=== PATIENT | female | born 1965 | race African-American/Black ===

== ENCOUNTER 2017-05-14 08:59 | Emergency (ER) | payer MEDICAID ==
[~2017-05-14] VITALS: Ht 167.6 cm; Wt 118.2 kg
[~2017-05-14 08:59] MED LIST: NO CURRENT MEDS
[2017-05-14] MEDS ORDERED: AMIT25TA9 PO (09:20)
[2017-05-14] MEDS ORDERED: CETI-260 PO (09:20)
[2017-05-14] MEDS ORDERED: GABA-531 PO (09:20)
[2017-05-14] MEDS ORDERED: IBUPROFEN 800 MG TABLET PO ONE (11:00)
[2017-05-14 12:19] VITALS: BP 115/66
== END 2017-05-14 12:14 | disposition home or self-care (01) ==
LOC: EMS 09:00
DX: S93.401A Sprain of unspecified ligament of right ankle, initial encounter (principal); S93.402A Sprain of unspecified ligament of left ankle, initial encounter; Z79.899 Other long term (current) drug therapy; X58.XXXA Exposure to other specified factors, initial encounter; Y93.89 Activity, other specified; Y92.89 Other specified places as the place of occurrence of the external cause; Y99.8 Other external cause status
CPT/HCPCS: 99284

== ENCOUNTER 2017-12-15 05:49 | Emergency (ER) | payer MEDICAID ==
[~2017-12-15] VITALS: Ht 167.6 cm; Wt 114.0 kg
[~2017-12-15 05:49] MED LIST changes: +AMIT25TA9 PO; +CETI-290 PO; +GABA-531 PO; -NO CURRENT MEDS
[2017-12-15 06:18] VITALS: BP 134/72
== END 2017-12-15 06:26 | disposition home or self-care (01) ==
LOC: EMS 05:51
DX: J40 Bronchitis, not specified as acute or chronic (principal)
CPT/HCPCS: 99283

== ENCOUNTER 2020-02-29 23:51 | Emergency (ER) | payer MEDICAID ==
[~2020-02-29] VITALS: Ht 167.6 cm; Wt 119.5 kg
[~2020-02-29 23:51] MED LIST changes: -AMIT25TA9 PO; -CETI-290 PO; +GABA-1181 PO; -GABA-531 PO
[2020-03-01] MEDS ORDERED: AMIT75 PO (00:02)
[2020-03-01 01:18] LABS: BASOPHILS % (AUTO) 0.8 % (0.0-2.0); EOSINOPHILS % (AUTO) 1.8 % (1.0-6.0); HEMATOCRIT 43.6 % (36-46); HEMOGLOBIN 14.5 g/dL (12.0-16.0); LYMPHOCYTES # (AUTO) 2.6 K/uL (1.0-4.8); LYMPHOCYTES % (AUTO) 41.7 % (22.0-44.0); MEAN CORPUSCULAR HEMOGLOBIN 33.8 pg (26.0-34.0); MEAN CORPUSCULAR HGB CONC 33.3 G/dL (31.0-37.0); MEAN CORPUSCULAR VOLUME 102 fL (80-100); MONOCYTES # (AUTO) 0.5 K/uL (0.1-1.0); MONOCYTES % (AUTO) 7.7 % (2.0-9.0); PLATELET COUNT (AUTO) 233 K/uL (150-450); RED BLOOD CELL COUNT(AUTO) 4.29 MIL/uL (4.00-5.20); RED CELL DISTRIBUTION WIDTH 13.6 % (11.5-14.5)
[2020-03-01] MEDS ORDERED: KETOROLAC TROMETHAMINE 60 MG/2 ML VIAL IM ONE (01:30)
[2020-03-01] MEDS ORDERED: FUROSEMIDE 20 MG TABLET PO ONE (01:30)
[2020-03-01 01:34] LABS: ANION GAP 9 mmol/L (8-16); CARBON DIOXIDE 31 mmol/L (22-29); CHLORIDE 104 mmol/L (98-107); GLOMERULAR FILTR. RATE CALC > 60 mL/min (>60); GLUCOSE,RANDOM 109 mg/dL (70-110); POTASSIUM 3.8 mmol/L (3.5-5.1); SODIUM SERUM 144 mmol/L (136-145); UREA NITROGEN, BLOOD 11 mg/dL (7-18)
[2020-03-01 01:40] LABS: ALANINE AMINOTRANSFERASE 23 U/L (12-78); ALBUMIN 3.6 g/dL (3.4-5.0); ALKALINE PHOSPHATASE 85 U/L (46-116); ASPARTATE AMINOTRANSFERASE 19 U/L (15-37); BILIRUBIN,TOTAL 0.6 mg/dL (0.1-1.0); TOTAL PROTEIN, SERUM 6.6 g/dL (6.4-8.2)
[2020-03-01 04:58] VITALS: BP 140/80
== END 2020-03-01 05:00 | disposition home or self-care (01) ==
LOC: EMS 23:55
DX: G62.9 Polyneuropathy, unspecified (principal); R60.0 Localized edema
CPT/HCPCS: 36415; 80053; 83880; 85025; 85379; 93970; 96372; 99285; J1885

== ENCOUNTER 2020-09-04 19:43 | Emergency (ER) | payer MEDICAID ==
[~2020-09-04] VITALS: Ht 170.2 cm; Wt 113.6 kg
[~2020-09-04 19:43] MED LIST changes: +AMIT75 PO
[2020-09-04 23:45] LABS: BASOPHILS % (AUTO) 0.6 % (0.0-2.0); EOSINOPHILS % (AUTO) 2.2 % (1.0-6.0); HEMATOCRIT 37.1 % (36-46); HEMOGLOBIN 12.6 g/dL (12.0-16.0); LYMPHOCYTES # (AUTO) 2.1 K/uL (1.0-4.8); LYMPHOCYTES % (AUTO) 35.5 % (22.0-44.0); MEAN CORPUSCULAR HEMOGLOBIN 34.3 pg (26.0-34.0); MEAN CORPUSCULAR VOLUME 101 fL (80-100); MONOCYTES # (AUTO) 0.6 K/uL (0.1-1.0); MONOCYTES % (AUTO) 9.5 % (2.0-9.0); NEUTROPHILS # (AUTO) 3.2 K/uL (1.8-7.7); NEUTROPHILS % (AUTO) 52.2 % (40.0-70.0); PLATELET COUNT (AUTO) 191 K/uL (150-450); RED BLOOD CELL COUNT(AUTO) 3.68 MIL/uL (4.00-5.20); RED CELL DISTRIBUTION WIDTH 13.3 % (11.5-14.5)
[2020-09-04 23:52] LABS: INR 0.9 (0.9-1.1); PROTHROMBIN TIME 9.9 SEC (9.4-11.6)
[2020-09-04 23:54] LABS: ANION GAP 9 mmol/L (8-16); CALCIUM, TOTAL 9.1 mg/dL (8.8-10.5); CARBON DIOXIDE 29 mmol/L (22-29); CHLORIDE 106 mmol/L (98-107); CREATININE 1.09 mg/dL (0.60-1.30); GLOMERULAR FILTR. RATE CALC > 60 mL/min (>60); GLUCOSE,RANDOM 117 mg/dL (70-110); POTASSIUM 3.9 mmol/L (3.5-5.1); SODIUM SERUM 144 mmol/L (136-145); UREA NITROGEN, BLOOD 7 mg/dL (7-18)
[2020-09-05 00:01] LABS: ALANINE AMINOTRANSFERASE 18 U/L (12-78); ALBUMIN 3.2 g/dL (3.4-5.0); ALKALINE PHOSPHATASE 83 U/L (46-116); ASPARTATE AMINOTRANSFERASE 18 U/L (15-37); BILIRUBIN,TOTAL 0.4 mg/dL (0.1-1.0); TOTAL PROTEIN, SERUM 6.3 g/dL (6.4-8.2)
[2020-09-05 00:20] VITALS: BP 136/81
== END 2020-09-05 01:14 | disposition home or self-care (01) ==
LOC: EMS 19:50
DX: S40.022A Contusion of left upper arm, initial encounter (principal); X58.XXXA Exposure to other specified factors, initial encounter; Y93.89 Activity, other specified; Y92.89 Other specified places as the place of occurrence of the external cause; Y99.8 Other external cause status
CPT/HCPCS: 93971

== ENCOUNTER 2021-01-02 19:42 | Emergency (ER) | payer MEDICAID ==
[~2021-01-02] VITALS: Ht 170.2 cm; Wt 113.6 kg
[2021-01-02 22:00] VITALS: BP 126/77
[2021-01-02] MEDS ORDERED: LIDOCAINE 5% TRANSDERMAL PATCH TD ONE (22:30)
[2021-01-02] MEDS ORDERED: KETOROLAC TROMETHAMINE 30 MG/ML VIAL IM ONE (22:30)
== END 2021-01-02 23:05 | disposition home or self-care (01) ==
LOC: EMS 19:42
DX: G62.9 Polyneuropathy, unspecified (principal)
CPT/HCPCS: 96372; 99283; J1885

== ENCOUNTER 2021-04-19 23:41 | Emergency (ER) | payer MEDICAID ==
[~2021-04-19] VITALS: Ht 170.2 cm; Wt 72.7 kg
[2021-04-20] MEDS ORDERED: KETOROLAC TROMETHAMINE 30 MG/ML VIAL IM ONE (02:45)
[2021-04-20] MEDS ORDERED: LIDOCAINE 5% TRANSDERMAL PATCH TD ONE (02:45)
[2021-04-20] MEDS ORDERED: ACETAMINOPHEN 500 MG TABLET PO ONE (02:45)
[2021-04-20 03:11] LABS: BASOPHILS % (AUTO) 0.5 % (0.0-2.0); EOSINOPHILS % (AUTO) 0.7 % (1.0-6.0); HEMATOCRIT 42.6 % (36-46); LYMPHOCYTES # (AUTO) 2.2 K/uL (1.0-4.8); LYMPHOCYTES % (AUTO) 28.1 % (22.0-44.0); MEAN CORPUSCULAR HEMOGLOBIN 33.9 pg (26.0-34.0); MEAN CORPUSCULAR HGB CONC 32.9 G/dL (31.0-37.0); MEAN CORPUSCULAR VOLUME 103 fL (80-100); MONOCYTES # (AUTO) 0.7 K/uL (0.1-1.0); MONOCYTES % (AUTO) 9.1 % (2.0-9.0); NEUTROPHILS # (AUTO) 4.8 K/uL (1.8-7.7); NEUTROPHILS % (AUTO) 61.6 % (40.0-70.0); PLATELET COUNT (AUTO) 228 K/uL (150-450); RED BLOOD CELL COUNT(AUTO) 4.13 MIL/uL (4.00-5.20); RED CELL DISTRIBUTION WIDTH 13.4 % (11.5-14.5)
[2021-04-20 03:16] LABS: ANION GAP 11 mmol/L (8-16); CALCIUM, TOTAL 9.2 mg/dL (8.8-10.5); CARBON DIOXIDE 29 mmol/L (22-29); CHLORIDE 104 mmol/L (98-107); CREATININE 1.03 mg/dL (0.60-1.30); GLOMERULAR FILTR. RATE CALC > 60 mL/min (>60); GLUCOSE,RANDOM 96 mg/dL (70-110); POTASSIUM 4.2 mmol/L (3.5-5.1); SODIUM SERUM 144 mmol/L (136-145); UREA NITROGEN, BLOOD 5 mg/dL (7-18)
[2021-04-20 03:22] LABS: ALANINE AMINOTRANSFERASE 21 U/L (12-78); ALBUMIN 3.4 g/dL (3.4-5.0); ALKALINE PHOSPHATASE 132 U/L (46-116); ASPARTATE AMINOTRANSFERASE 21 U/L (15-37); TOTAL PROTEIN, SERUM 7.2 g/dL (6.4-8.2)
[2021-04-20 06:19] VITALS: BP 125/71
== END 2021-04-20 07:01 | disposition home or self-care (01) ==
LOC: EMS 23:42
DX: M54.16 Radiculopathy, lumbar region (principal)
CPT/HCPCS: 36415; 80053; 85025; 96372; 99283; J1885

== ENCOUNTER 2021-06-16 03:34 | Emergency (ER) | payer MEDICAID ==
[~2021-06-16] VITALS: Ht 167.6 cm; Wt 118.2 kg
[~2021-06-16 03:34] MED LIST changes: -AMIT75 PO; +AMIT75TA55 PO
[2021-06-16] MEDS ORDERED: KETOROLAC TROMETHAMINE 30 MG/ML VIAL IM ONE ×2 (04:15→04:30)
[2021-06-16] MEDS ORDERED: LIDOCAINE 5% TRANSDERMAL PATCH TD ONE (04:30)
[2021-06-16 05:31] VITALS: BP 149/98
== END 2021-06-16 05:50 | disposition home or self-care (01) ==
LOC: EMS 03:35
DX: M54.16 Radiculopathy, lumbar region (principal); Z79.899 Other long term (current) drug therapy
CPT/HCPCS: 96372; 99283; J1885

== ENCOUNTER 2021-11-02 22:43 | Emergency (ER) | payer MEDICAID ==
[~2021-11-02] VITALS: Ht 170.2 cm; Wt 113.6 kg
[2021-11-02] MEDS ORDERED: KETOROLAC TROMETHAMINE 60 MG/2 ML VIAL IM ONE (23:45)
[2021-11-02] MEDS ORDERED: OxyCODONE HCL/ACETAMINOPHEN 5-325 MG TABLET PO ONE (23:45)
[2021-11-02 23:49] VITALS: BP 120/68
== END 2021-11-03 00:40 | disposition home or self-care (01) ==
LOC: EMS 22:44
DX: G62.9 Polyneuropathy, unspecified (principal)
CPT/HCPCS: 96372; 99283; J1885

== ENCOUNTER 2022-03-05 16:55 | Emergency (ER) | payer MEDICAID ==
[~2022-03-05] VITALS: Ht 170.2 cm; Wt 109.1 kg
[2022-03-05] MEDS ORDERED: ACETAMINOPHEN 500 MG TABLET PO ONE (18:00)
[2022-03-05 19:28] VITALS: BP 135/70
== END 2022-03-05 19:34 | disposition home or self-care (01) ==
LOC: EMS 17:12
DX: S09.90XA Unspecified injury of head, initial encounter (principal); M54.2 Cervicalgia; M54.50 Low back pain, unspecified; R51.9 Headache, unspecified; Z86.69 Personal history of other diseases of the nervous system and sense organs; Z98.890 Other specified postprocedural states; V89.2XXA Person injured in unspecified motor-vehicle accident, traffic, initial encounter; Y93.89 Activity, other specified; Y92.89 Other specified places as the place of occurrence of the external cause; Y99.8 Other external cause status
CPT/HCPCS: 70450; 72100; 72125; 99284

== ENCOUNTER 2023-07-19 19:11 | Emergency (ER) | payer MEDICAID ==
[~2023-07-19] VITALS: Ht 167.6 cm; Wt 114.5 kg
[2023-07-19 19:12] VITALS: TEMP 98
[2023-07-19] MEDS ORDERED: METHOCARBAMOL 100 MG/ML 10 ML VIAL IVP ONE (20:30)
[2023-07-19] MEDS ORDERED: KETOROLAC TROMETHAMINE 30 MG/ML VIAL IVP ONE (20:30)
[2023-07-19 21:04] LABS: BASOPHILS % (AUTO) 1.6 % (0.0-2.0); EOSINOPHILS % (AUTO) 2.2 % (1.0-6.0); HEMATOCRIT 41.3 % (36-46); HEMOGLOBIN 13.8 g/dL (12.0-16.0); LYMPHOCYTES # (AUTO) 1.6 K/uL (1.0-4.8); LYMPHOCYTES % (AUTO) 29.8 % (22.0-44.0); MEAN CORPUSCULAR HEMOGLOBIN 34.6 pg (26.0-34.0); MEAN CORPUSCULAR HGB CONC 33.3 G/dL (31.0-37.0); MEAN CORPUSCULAR VOLUME 104 fL (80-100); MONOCYTES # (AUTO) 0.5 K/uL (0.1-1.0); MONOCYTES % (AUTO) 10.4 % (2.0-9.0); NEUTROPHILS # (AUTO) 2.9 K/uL (1.8-7.7); PLATELET COUNT (AUTO) 189 K/uL (150-450); RED BLOOD CELL COUNT(AUTO) 3.98 MIL/uL (4.00-5.20); RED CELL DISTRIBUTION WIDTH 14.4 % (11.5-14.5); WHITE BLOOD COUNT (AUTO) 5.2 K/uL (4.5-11.0)
[2023-07-19] MEDS ORDERED: FentaNYL CITRATE PF 100 MCG/2 ML VIAL IVP ONE (21:15)
[2023-07-19 21:20] LABS: ANION GAP 12 mmol/L (8-16); CALCIUM, TOTAL 9.1 mg/dL (8.8-10.5); CARBON DIOXIDE 27 mmol/L (22-29); CHLORIDE 106 mmol/L (98-107); CREATININE 1.03 mg/dL (0.60-1.30); GLOMERULAR FILTR. RATE CALC > 60 mL/min (>60); GLUCOSE,RANDOM 111 mg/dL (70-110); POTASSIUM 4.1 mmol/L (3.5-5.1); SODIUM SERUM 145 mmol/L (136-145); UREA NITROGEN, BLOOD 8 mg/dL (7-18)
[2023-07-19 21:26] LABS: ALANINE AMINOTRANSFERASE 28 U/L (12-78); ALBUMIN 3.6 g/dL (3.4-5.0); ALKALINE PHOSPHATASE 97 U/L (46-116); ASPARTATE AMINOTRANSFERASE 36 U/L (15-37); BILIRUBIN,TOTAL 0.6 mg/dL (0.1-1.0); LIPASE 21 U/L (16-77); TOTAL PROTEIN, SERUM 6.8 g/dL (6.4-8.2)
[2023-07-19 21:50] LABS: RBC MORPHOLOGY COMMENT ABNORMAL RBC MORPH
[2023-07-19] MEDS ORDERED: DIAZEPAM 5 MG TABLET PO ONE (23:00)
[2023-07-19] MEDS ORDERED: TRIAMCINOLONE ACETONIDE 40 MG/ML VIAL IM ONE (23:45)
[2023-07-20] MEDS ORDERED: LIDO1ADH63 TP (01:11)
[2023-07-20] MEDS ORDERED: TRAM-559 PO ×2 (01:12→01:13)
[2023-07-20 01:34] VITALS: BP 125/69; PULSE 74; RESP 17
== END 2023-07-20 01:34 | disposition home or self-care (01) ==
LOC: EMS 19:13
DX: M54.6 Pain in thoracic spine (principal); Z98.890 Other specified postprocedural states
CPT/HCPCS: 99284; 20550; 96374; 71045; 96375; 80053; 83690; 85025; 36415; 72072; 96372; J3010; J1885; J2800; J3301

== ENCOUNTER 2023-12-11 13:09 | Emergency (ER) | payer MEDICAID ==
[~2023-12-11] VITALS: Ht 170.2 cm; Wt 114.1 kg
[~2023-12-11 13:09] MED LIST changes: +LIDO1ADH63 TP; +TRAM-559 PO
[2023-12-11 13:16] VITALS: BP 111/62; PULSE 70; RESP 18; TEMP 96.9
[2023-12-11] MEDS ORDERED: HYDR25TA2 PO (13:19)
[2023-12-11] MEDS: KETOROLAC TROMETHAMINE 30 MG/ML VIAL IM ONE (15:00)
[2023-12-11] MEDS: LIDOCAINE 5% TRANSDERMAL PATCH TD ONE (15:01)
[2023-12-11] MEDS: ACETAMINOPHEN 500 MG TABLET PO ONE (15:01)
[2023-12-11] MEDS ORDERED: IBUP-1492 PO (15:03)
[2023-12-11] MEDS ORDERED: LIDO700A15 TP (15:03)
[2023-12-11] MEDS ORDERED: ACET-3385 PO (15:03)
== END 2023-12-11 15:21 | disposition home or self-care (01) ==
LOC: EMS 13:12
DX: M54.16 Radiculopathy, lumbar region (principal)
CPT/HCPCS: 99283; 96372; J1885

== ENCOUNTER 2024-03-01 15:22 | Emergency (ER) | payer MEDICAID ==
[~2024-03-01] VITALS: Ht 160 cm; Wt 113.6 kg
[~2024-03-01 15:22] MED LIST changes: +ACET-3385 PO; +HYDR25TA2 PO; +IBUP-1492 PO; +LIDO700A15 TP; -TRAM-559 PO
[2024-03-01 15:23] VITALS: BP 121/62; PULSE 75; RESP 17; TEMP 98.4
[2024-03-01] MEDS ORDERED: METO-408 PO (15:28)
[2024-03-01] MEDS ORDERED: AMIT25TA9 PO (15:28)
[2024-03-01] MEDS ORDERED: MINO2.5 PO (15:28)
[2024-03-01] MEDS ORDERED: HYDR12.54 PO (15:28)
[2024-03-01] MEDS ORDERED: ASPI-1444 PO (15:28)
== END 2024-03-01 18:45 | disposition left against medical advice (07) ==
LOC: EMS 15:24
DX: M54.9 Dorsalgia, unspecified (principal); Z53.21 Procedure and treatment not carried out due to patient leaving prior to being seen by health care provider

== ENCOUNTER 2025-07-04 21:18 | Emergency (ER) | payer MEDICAID ==
[~2025-07-04] VITALS: Ht 165.1 cm; Wt 121.8 kg
[~2025-07-04 21:18] MED LIST changes: +AMIT25TA21 PO; -AMIT75TA55 PO; +ASPI-1444 PO; +HYDR12.54 PO; -HYDR25TA2 PO; -LIDO700A15 TP; +METO-408 PO; +MINO2.5 PO
[2025-07-04 21:56] VITALS: BP 109/79; PULSE 99; RESP 19; TEMP 97.9; O2SAT 99
== END 2025-07-05 00:15 | disposition home or self-care (01) ==
LOC: EMS 21:20
DX: T65.891A Toxic effect of other specified substances, accidental (unintentional), initial encounter (principal); I10 Essential (primary) hypertension; Z79.82 Long term (current) use of aspirin; Z79.899 Other long term (current) drug therapy; Z98.890 Other specified postprocedural states; Y92.89 Other specified places as the place of occurrence of the external cause
CPT/HCPCS: 99282; Z7502